=== PATIENT | female | born 1990 | race Caucasian/White ===

== ENCOUNTER → 2016-07-27 | Outpatient (CLI) | payer BC | END | disposition home or self-care (01) | LOC: LABWHC1 17:28 | PROVIDERS: ATTEND Obstetrics & Gynecology | DX: E03.9 Hypothyroidism, unspecified (principal) | CPT/HCPCS: 36415; 84439; 84443 ==

== ENCOUNTER → 2022-10-23 | Outpatient (CLI) | payer BC ==
[2022-10-23 15:33] LABS: Basophils # (A) 0.03 X 10*3/uL (0.00-0.10); Basophils % (A) 0.8 %; Eosinophils # (A) 0.05 X 10*3/uL (0.04-0.35); Eosinophils % (A) 1.4 %; HCT 38.1 % (37.2-46.3); HGB 12.9 g/dL (12.0-15.0); Immature Grans, Automated 0 %; Lymphocytes # (A) 1.13 X 10*3/uL (0.90-5.00); MCH 30.3 pg (27.0-32.0); MCHC 33.9 g/dL (32.0-37.0); MCV 89.4 fL (80.0-97.0); Mean Platelet Volume 10.3 fL (9.5-12.2); Monocytes # (A) 0.27 X 10*3/uL (0.20-1.00); Monocytes % (A) 7.4 %; NRBC Per 100 WBC 0 /100 WBCS (0.0-0.0); Neutrophils # (A) 2.16 X 10*3/uL (1.80-7.70); Neutrophils % (A) 59.4 %; Platelet Count 228 X 10*3/uL (140-440); RBC 4.26 X 10*6/uL (4.10-5.20); RDW 12.1 % (11.5-14.5); WBC 3.64 X 10*3/uL (4.50-10.00)
[2022-10-23 16:25] LABS: C Reactive Protein <0.30 mg/dL (0.00-0.80); Rheumatoid Factor, Qnt <10 IU/mL (0-15); Uric Acid 4.4 mg/dL (2.9-7.7)
[2022-10-23 16:33] LABS: Erythrocyte Sedimentation Rate 5 mm/Hr (0-20)
[2022-10-23 20:51] LABS: DNA Double-Stranded NEGATIVE (NEGATIVE)
[2022-10-24 12:29] LABS: HLA B27 NEGATIVE
== END | disposition home or self-care (01) ==
LOC: LABWHC1 11:08
PROVIDERS: ATTEND Orthopaedic Surgery
DX: M25.50 Pain in unspecified joint (principal)
CPT/HCPCS: 36415; 84550; 85025; 85652; 86038; 86140; 86225; 86431; 86812

== ENCOUNTER → 2024-04-30 | Outpatient (CLI) | payer BC ==
[2024-04-30 15:08] LABS: Basophils # (A) 0.02 X 10*3/uL (0.00-0.10); Basophils % (A) 0.5 %; Eosinophils # (A) 0.07 X 10*3/uL (0.04-0.35); Eosinophils % (A) 1.8 %; HCT 40.7 % (37.2-46.3); HGB 13.5 g/dL (12.0-15.0); Lymphocytes # (A) 1.15 X 10*3/uL (0.90-5.00); MCH 30.4 pg (27.0-32.0); MCHC 33.2 g/dL (32.0-37.0); MCV 91.7 FL (80.0-97.0); Mean Platelet Volume 10.6 FL (9.5-12.2); Monocytes % (A) 7.6 %; NRBC Per 100 WBC 0 X 10*3/uL (0.00-0.01); Neutrophils # (A) 2.41 X 10*3/uL (1.80-7.70); Neutrophils % (A) 60.8 %; Platelet Count 249 X 10*3/uL (140-440); RBC 4.44 X 10*6/uL (4.10-5.20); WBC 3.96 X 10*3/uL (4.50-10.00)
[2024-04-30 15:51] LABS: ALT 14 U/L (8-44); AST 16 U/L (13-35); Albumin 4.6 g/dL (3.8-4.9); Albumin/Globulin Ratio 1.77 Ratio (1.60-3.17); Alkaline Phosphatase 58 U/L (41-126); Blood Urea Nitrogen 10.8 mg/dL (9.0-27.0); Calcium 9.6 mg/dL (8.7-10.3); Carbon Dioxide 24.7 mmol/L (21.6-31.8); Chloride 104 mmol/L (96-109); Chol/HDL Ratio 3.34 Ratio; Globulin 2.6 g/dL (1.6-3.3); Glucose 97 mg/dL (70-110); LDL Cholesterol,Calculated 120.4 mg/dL (0.0-131.0); Potassium 4.9 mmol/L (3.5-5.5); Sodium 139 mmol/L (135-145); T4, Free (Free Thyroxine) 2.15 ng/dL (0.80-1.80); Total Bilirubin 1.1 mg/dL (0.3-1.2); Total Protein 7.2 g/dL (6.2-8.2); VLDL Calculation 19.76 mg/dL (5.00-40.00)
== END | disposition home or self-care (01) ==
LOC: LABWHC1 08:36
PROVIDERS: ATTEND Family Medicine
DX: Z00.00 Encounter for general adult medical examination without abnormal findings (principal)
CPT/HCPCS: 36415; 80053; 80061; 84439; 84443; 85025

== ENCOUNTER → 2024-05-14 | Outpatient (CLI) | payer BC ==
--- NOTE | 2024-05-15 05:05 | MR ---
EXAMINATION TYPE: MR knee LT wo con DATE OF EXAM: 05/14/2024 COMPARISON: Outside left knee x-ray May 09, 2024 HISTORY: Left knee pain, locking, and swelling for 1 month after twisting injury. TECHNIQUE: Multiplanar, multisequence images of the knee is performed without IV contrast. FINDINGS: MEDIAL MENISCUS: Anterior and posterior horns are intact without tear. LATERAL MENISCUS: Anterior and posterior horns are intact without tear. CRUCIATE LIGAMENTS: The anterior and posterior cruciate ligaments are intact and unremarkable. COLLATERAL LIGAMENTS: The medial collateral ligament and lateral collateral ligament complex are inta ct and unremarkable. EXTENSOR MECHANISM: Visualized quadriceps and patellar tendons are intact. EFFUSION: Small size suprapatellar joint effusion. POPLITEAL CYST: No popliteal/manley cyst. TRICOMPARTMENT SPACES: Mild narrowing patellofemoral and medial tibiofemoral compartments. No signifi cant spurring. CARTILAGE: Tricompartmental articular cartilage is preserved. BONE MARROW SIGNAL: No focal abnormal marrow signal is appreciated. OTHER: No additional significant abnormality is appreciated. IMPRESSION: No meniscal or ligamentous tear is seen. Small suprapatellar joint effusion noted. [facility], , 05/15/2024 5:02 AM
== END | disposition home or self-care (01) ==
LOC: RADMRIMAIN 19:13
PROVIDERS: ATTEND Orthopaedic Surgery
DX: M25.462 Effusion, left knee (principal)